=== PATIENT | male | born 1960 | race African-American/Black ===

== ENCOUNTER 2019-03-05 07:07 | Outpatient (CLI) | payer OTHER, MEDICAID ==
[~2019-03-05] VITALS: Ht 188 cm; Wt 78.2 kg
[2019-03-05 07:37] LABS: HEMATOCRIT 34.7 % (42.0-54.0); HEMOGLOBIN 12.2 g/dL (13.5-17.5); LYMPHOCYTES 19.6 % (15-50); MCH 32.9 pg (26.0-34.0); MCHC 35.2 g/dL (31.0-37.0); MCV 93.5 fL (80.0-100.0); MEAN PLATELET VOLUME 9.5 fL (7.4-10.4); NEUTROPHILS 70.7 % (40-80); RBC 3.71 10x6/uL (4.20-6.10); WBC 9.8 10x3/uL (4.8-10.8)
[2019-03-05 07:41] LABS: CALC OSMOLALITY 269 mosm/kg (275-300); CALCIUM 9.2 mg/dL (8.5-10.1); CARBON DIOXIDE 27.5 mmol/L (21.0-32.0); CHLORIDE - SERUM 100 mmol/L (98-107); GLUCOSE 123 mg/dL (74-106); PLATELET COUNT 311 10x3/uL (130-400); POTASSIUM - SERUM 4.2 mmol/L (3.5-5.1); SODIUM 135 mmol/L (136-145); UREA NITROGEN 9 mg/dL (7-18); eGFR NON AFRICAN AMERICAN 81 mL/min (90-120)
[2019-03-05 07:42] LABS: APTT 30.5 SECONDS (22.8-39.4); INR 1.09 (0.85-1.17); PROTIME 13.6 SECONDS (11.6-15.0)
[2019-03-05 08:40] VITALS: BP 142/96; Ht 188 cm; Wt 78.2 kg
[2019-03-05 08:40] LABS: ERYTHROCYTE SEDIMENTATION RATE 90 mm/hr (0-20)
[2019-03-06 16:08] LABS: ACID FAST SMEAR Negative (()); AFB SPECIMEN PROCESSING Concentration (())
[2019-03-08 14:09] LABS: FUNGUS STAIN Final report (())
[2019-03-08 15:10] LABS: ANA REFLEX - DIRECT Negative (Negative)
[2019-03-08 16:13] LABS: ANCA - ANTIMYELOPEROXIDASE <9.0 U/mL (0.0-9.0); ANCA - ANTIPROTEINASE 3 <3.5 U/mL (0.0-3.5); ANCA - ATYPICAL <1:20 titer (Neg:<1:20); ANCA - CYTOPLASMIC <1:20 titer (Neg:<1:20); ANCA - PERINUCLEAR <1:20 titer (Neg:<1:20)
[2019-03-14 14:06] LABS: FUNGAL - ASP FLAVUS Negative (Neg:<1:1); FUNGAL - ASP NIGER Negative (Neg:<1:1); FUNGAL - ASPER FUMIGATUS Negative (Neg:<1:1)
== END 2019-03-05 12:10 ==
LOC: D.OPS 07:07
PROVIDERS: ATTEND Internal Medicine Pulmonary Disease
DX: J85.2 Abscess of lung without pneumonia (principal); Z01.812 Encounter for preprocedural laboratory examination

== ENCOUNTER 2020-08-03 23:15 | Emergency (ER) | payer MEDICAID ==
[~2020-08-03] VITALS: Ht 188 cm; Wt 72.7 kg
[2020-08-03 23:18] VITALS: BP 164/105; Ht 188 cm; Wt 72.7 kg
== END 2020-08-03 23:55 | disposition home or self-care (01) ==
LOC: D.ER 23:15
DX: T18.128A Food in esophagus causing other injury, initial encounter (principal); K22.2 Esophageal obstruction